=== PATIENT | female | born 1980 | race Caucasian/White ===

== ENCOUNTER 2019-11-19 19:44 | Emergency (ER) | payer SELFPAY ==
[2019-11-19] MEDS ORDERED: FENTANYL CITRATE INJ/PF 100 MCG/2 ML AMPUL IV ONE (20:25)
[2019-11-19] MEDS ORDERED: ONDANSETRON HCL INJ/PF 4 MG/2 ML SDV IV ONE (20:25)
[2019-11-19] MEDS ORDERED: HYDROMORPHONE HCL INJ/PF 2 MG/ML AMPULE IM ONE (20:27)
[2019-11-19] MEDS ORDERED: ONDANSETRON 4 MG TAB.RAPDIS PO ONE (20:29)
--- NOTE | 2019-11-19 20:29 | ER Document Report ---
ED Medical Screen (RME) - General Chief Complaint: Abdominal Pain Stated Complaint: POSSIBLE KIDNEY STONE, PELVIC PAIN, BACK PAIN Time Seen by Provider: 11/19/19 20:23 Notes: HPI: 39-year-old female with history of kidney stones and also history of ovarian torsion on the right presenting with right flank pain and pelvic pain today. Has had nausea vomiting with this. States it started early this morning around 830. Pain does not specifically change with position or movement. No fever PHYSICAL EXAMINATION: Moderately uncomfortable. No significant reproducible pain through the right flank or pelvis on palpation. I have greeted and performed a rapid initial assessment of this patient. A comprehensive ED assessment and evaluation of the patient, analysis of test results and completion of medical decision making process will be conducted by an additional ED providers. TRAVEL OUTSIDE OF THE [place] IN LAST 30 DAYS: No - Related Data Allergies/Adverse Reactions: metoclopramide HCl [From Reglan] Allergy (Verified 02/02/15 19:18) morphine [Morphine] Allergy (Verified 02/02/15 19:17) Past Medical History - Social History Frequency of alcohol use: None Drug Abuse: None Renal/ Medical History: Reports: Hx Kidney Stones, Hx Ovarian Cysts GI Medical History: Reports: Hx Gastroesophageal Reflux Disease, Hx Ulcer Past Surgical History: Reports: Hx Appendectomy, Hx Cholecystectomy, Hx Hyste rectomy - Partial - Immunizations Hx Diphtheria, Pertussis, Tetanus Vaccination: Yes Physical Exam - Vital signs Vitals: Temp Pulse Resp BP Pulse Ox 98.4 F 105 H 19 123/78 99 11/19/19 20:00 11/19/19 20:00 11/19/19 20:00 11/19/19 20:00 11/19/19 20:00 Course - Vital Signs Vital signs: Temp Pulse Resp BP Pulse Ox 98.4 F 105 H 19 123/78 99 11/19/19 20:19 11/19/19 20:00 11/19/19 20:00 11/19/19 20:00 11/19/19 20:00
[2019-11-19 20:53] LABS: ABSOLUTE BASOPHILS # (AUTO) 0.1 10^3/uL (0.0-0.2); ABSOLUTE EOSINOPHILS # (AUTO) 0.1 10^3/uL (0.0-0.6); ABSOLUTE LYMPHOCYTES (AUTO) 1.6 10^3/uL (0.5-4.7); ABSOLUTE MONOCYTES (AUTO) 0.6 10^3/uL (0.1-1.4); ABSOLUTE NEUT (AUTO) 3.1 10^3/uL (1.7-8.2); BASOPHILS % (AUTO) 1.3 % (0-2); HEMATOCRIT 38.7 % (36.0-47.0); HEMOGLOBIN 12.4 g/dL (12.0-15.5); LYMPHOCYTES % (AUTO) 29.3 % (13-45); MEAN CORPUSCULAR HEMOGLOBIN 28.4 pg (27.0-33.4); MEAN CORPUSCULAR VOLUME 89 fl (80-97); MONOCYTES % (AUTO) 10.9 % (3-13); PLATELET COUNT 360 10^3/uL (150-450); RED BLOOD COUNT 4.36 10^6/uL (3.72-5.28); RED CELL DISTRIBUTION WIDTH 16.6 % (11.5-14.0); SEGMENTED NEUTROPHILS % (AUTO) 57.5 % (42-78); TOTAL CELLS COUNTED % (AUTO) 100 %; WHITE BLOOD COUNT 5.3 10^3/uL (4.0-10.5)
[2019-11-19 21:20] LABS: ALBUMIN 4.2 g/dL (3.5-5.0); ALKALINE PHOSPHATASE 62 U/L (38-126); ANION GAP 6 (5-19); ASPARTATE AMINO TRANSFERASE 19 U/L (14-36); BILIRUBIN,TOTAL 0.3 mg/dL (0.2-1.3); BLOOD UREA NITROGEN 13 mg/dL (7-20); CARBON DIOXIDE 26 mmol/L (22-30); CHLORIDE 107 mmol/L (98-107); GLUCOSE 103 mg/dL (75-110); POTASSIUM 4.1 mmol/L (3.6-5.0); TOTAL PROTEIN 7.3 g/dL (6.3-8.2)
--- NOTE | 2019-11-19 21:43 | RADIOLOGY REPORT (SQ) ---
EXAM DESCRIPTION: US PELVIS TRANSVAGINAL COMPLETED DATE/TME: 11/19/2019 20:25 CLINICAL HISTORY: 39 years, Female, right pelvic pain torsion hx COMPARISON: None. EXAM DESCRIPTION: CLINICAL HISTORY:39 years Female, right pelvic pain torsion hx COMPARISON:None. TECHNIQUE: Grayscale and Doppler sonogram of the pelvis. Transabdominal technique was performed.Transvaginal technique was used for better evaluation of the pelvic viscera FINDINGS: The uterus is not visualized consistent with surgical history. No significant pelvic free fluid. The right ovary measures 2.5 x 1.6 x 1.8 cm and is normal in appearance including dominant follicle measuring 1 cm. Normal vascular flow by color and spectral Doppler imaging. The left ovary is not visualized on transabdominal or transvaginal views. IMPRESSION: Normal appearance of the right ovary. Nonvisualization of the left ovary. No acute sonographic abnormalities.
[2019-11-20] MEDS ORDERED: NORMAL SALINE 1000 ML 1,000 ML IV ONE (00:17)
[2019-11-20] MEDS ORDERED: KETOROLAC TROMETHAMINE INJ/PF 30 MG/1 ML SDV IV ONE (00:17)
--- NOTE | 2019-11-20 01:34 | RADIOLOGY REPORT (SQ) ---
CT abdomen and pelvis without contrast on 11/20/2019 at 12:11 AM CLINICAL INDICATION: Right-sided back pain, history of kidney stones TECHNIQUE: Multiple axial images are obtained throughout the abdomen and pelvis without the administration of contrast. This exam was performed according to our departmental dose-optimization program, which includes automated exposure control, adjustment of the mA and/or kV according to patient size and/or use of iterative reconstruction technique. Total DLP is 278.95 mGy*cm. COMPARISON: Prior report of a study from 06/07/2018 at [facility] but no images are available for comparison FINDINGS: Abdomen: The lung bases are clear. The patient is status post cholecystectomy. There is a very small hiatal hernia. There are no renal or ureteral stones and no hydronephrosis. The unenhanced solid abdominal organs are otherwise unremarkable. There is no abdominal adenopathy. There is no free fluid or free air within the abdomen. The abdominal portion of the GI tract is unremarkable. Pelvis: The patient is status post hysterectomy. There is no free fluid in the pelvis. There is no pelvic adenopathy. There is a rounded low-density structure in the right posterior pelvic inlet adjacent to surgical clips seen well on axial image 61 and coronal image 32. This is described on prior report as well. This measures approximately 2.7 x 2.3 x 3.1 cm. This may represent the right ovary versus a old postoperative seroma, lymphocele or hematoma but favor a benign etiology. If the prior images are made available for comparison an addendum to this report can be made. The patient is status post appendectomy. Pelvic portion of the GI tract is unremarkable. No acute bony abnormality is noted. IMPRESSION: 1. Cystic structure in the right pelvis likely benign etiology as above, if the prior images are made available for comparison an addendum to this report can be made. 2. Otherwise no acute abnormality.
[2019-11-20 01:51] LABS: APPEARANCE,URINE CLOUDY; BILIRUBIN,URINE NEGATIVE (NEGATIVE); GLUCOSE, URINE NEGATIVE (NEGATIVE); KETONES,URINE NEGATIVE (NEGATIVE); LEUKOCYTE ESTERASE,URINE SMALL (NEGATIVE); NITRITE,URINE NEGATIVE (NEGATIVE); PROTEIN,URINE 30 mg/dL (NEGATIVE); URINE SPECIFIC GRAVITY 1.024
[2019-11-20 01:52] LABS: COLOR,URINE YELLOW
[2019-11-20] MEDS ORDERED: METOCLOPRAMIDE HCL INJ/PF 10 MG/2 ML SDV IV ONE (02:05)
[2019-11-20] MEDS ORDERED: PROMETHAZINE HCL INJ 25 MG/1 ML VIAL IV ONE (02:05)
--- NOTE | 2019-11-20 02:15 | ER Document Report ---
ED GI/ - General Chief Complaint: Abdominal Pain Stated Complaint: POSSIBLE KIDNEY STONE, PELVIC PAIN, BACK PAIN Time Seen by Provider: 11/19/19 20:23 Primary Care Provider: MIRANDA CHEW NP-C [Primary Care Provider] - Follow up as needed Mode of Arrival: Ambulatory Information source: Patient Notes: 39-year-old female patient presenting to the emergency department with complaints of right flank pain and pelvic pain. She denies any abnormal discharge. She reports she has a history of kidney stones. She reports she has had nausea with vomiting but denies any fever, chills or diarrhea. She states that started early this morning around 830. She states there is no increase of her pain with movement. She thinks this is consistent with a kidney stone. TRAVEL OUTSIDE OF THE [place] IN LAST 30 DAYS: No - Related Data Allergies/Adverse Reactions: metoclopramide HCl [From Reglan] Allergy (Verified 02/02/15 19:18) morphine [Morphine] Allergy (Verified 02/02/15 19:17) Past Medical History - General Information source: Patient - Social History Smoking Status: Never Smoker Frequency of alcohol use: None Drug Abuse: None Family History: CAD, Reviewed & Not Pertinent Patient has homicidal ideation: No Renal/ Medical History: Reports: Hx Kidney Stones, Hx Ovarian Cysts GI Medical History: Reports: Hx Gastroesophageal Reflux Disease, Hx Ulcer Past Surgical History: Reports: Hx Appendectomy, Hx Cholecystectomy, Hx Hysterectomy - Partial - Immunizations Hx Diphtheria, Pertussis, Tetanus Vaccination: Yes Review of Systems - Review of Systems Constitutional: No symptoms reported EENT: No symptoms reported Cardiovascular: No symptoms reported Respiratory: No symptoms reported Gastrointestinal: Nausea, Vomiting Genitourinary: Flank pain Female Genitourinary: No symptoms reported Musculoskeletal: No symptoms reported Skin: No symptoms reported Hematologic/Lymphatic: No symptoms reported Neurological/Psychological: No symptoms reported Physical Exam - Vital signs Vitals: Temp Pulse Resp BP Pulse Ox 98.4 F 105 H 19 123/78 99 11/19/19 20:00 11/19/19 20:00 11/19/19 20:00 11/19/19 20:00 11/19/19 20:00 - Notes Notes: PHYSICAL EXAMINATION: GENERAL: Well-appearing, well-nourished and in no acute distress. HEAD: Atraumatic, normocephalic. EYES: Pupils equal round and reactive to light, extraocular movements intact, conjunctiva are normal. ENT: Nares patent, oropharynx clear without exudates. Moist mucous membranes. NECK: Normal range of motion, supple without lymphadenopathy LUNGS: Breath sounds clear to auscultation bilaterally and equal. No wheezes rales or rhonchi. HEART: Regular rate and rhythm without murmurs ABDOMEN: Soft, nontender, nondistended abdomen. No guarding, no rebound. No masses appreciated. Female : deferred Musculoskeletal: Normal range of motion, no pitting or edema. No cyanosis. NEUROLOGICAL: Cranial nerves grossly intact. Normal speech, normal gait. Normal sensory, motor exams PSYCH: Normal mood, normal affect. SKIN: Warm, Dry, normal turgor, no rashes or lesions noted. Course - Re-evaluation Re-evalutation: Laboratory 11/19/19 11/19/19 11/19/19 20:40 20:40 20:40 WBC 5.3 RBC 4.36 Hgb 12.4 Hct 38.7 MCV 89 MCH 28.4 MCHC 32.0 RDW 16.6 H Plt Count 360 Lymph % (Auto) 29.3 Mclean % (Auto) 10.9 Eos % (Auto) 1.0 Baso % (Auto) 1.3 Absolute Neuts (auto) 3.1 Absolute Lymphs (auto) 1.6 Absolute Monos (auto) 0.6 Absolute Eos (auto) 0.1 Absolute Basos (auto) 0.1 Seg Neutrophils % 57.5 Sodium 139.0 Potassium 4.1 Chloride 107 Carbon Dioxide 26 Anion Gap 6 BUN 13 Creatinine 0.60 Est GFR ( Amer) > 60 Est GFR (MDRD) Non-Af > 60 Glucose 103 Calcium 10.0 Total Bilirubin 0.3 Direct Bilirubin 0.0 Neonat Total Bilirubin Not Reportable Neonat Direct Bilirubin Not Reportable Neonat Indirect Bili Not Reportable AST 19 ALT 13 Alkaline Phosphatase 62 Total Protein 7.3 Albumin 4.2 Serum HCG, Qual NEGATIVE Urine Color Urine Appearance Urine pH Ur Specific [place] Urine Protein Urine Glucose (UA) Urine Ketones Urine Blood Urine Nitrite Urine Bilirubin Urine Urobilinogen Ur Leukocyte Esterase Urine WBC (Auto) Urine RBC (Auto) Urine Bacteria (Auto) Squamous Epi Cells Auto Urine Mucus (Auto) Urine Ascorbic Acid 11/19/19 20:40 WBC RBC Hgb Hct MCV MCH MCHC RDW Plt Count Lymph % (Auto) Mclean % (Auto) Eos % (Auto) Baso % (Auto) Absolute Neuts (auto) Absolute Lymphs (auto) Absolute Monos (auto) Absolute Eos (auto) Absolute Basos (auto) Seg Neutrophils % Sodium Potassium Chloride Carbon Dioxide Anion Gap BUN Creatinine Est GFR ( Amer) Est GFR (MDRD) Non-Af Glucose Calcium Total Bilirubin Direct Bilirubin Neonat Total Bilirubin Neonat Direct Bilirubin Neonat Indirect Bili AST ALT Alkaline Phosphatase Total Protein Albumin Serum HCG, Qual Urine Color YELLOW Urine Appearance CLOUDY Urine pH 6.0 Ur Specific [place] 1.024 Urine Protein 30 H Urine Glucose (UA) NEGATIVE Urine Ketones NEGATIVE Urine Blood LARGE H Urine Nitrite NEGATIVE Urine Bilirubin NEGATIVE Urine Urobilinogen 4.0 H Ur Leukocyte Esterase SMALL H Urine WBC (Auto) 4 Urine RBC (Auto) >182 Urine Bacteria (Auto) TRACE Squamous Epi Cells Auto 9 Urine Mucus (Auto) MANY Urine Ascorbic Acid NEGATIVE Abdomen/Pelvis CT 11/19/19 20:24 IMPRESSION: 1. Cystic structure in the right pelvis likely benign etiology as above, if the prior images are made available for comparison an addendum to this report can be made. 2. Otherwise no acute abnormality. Transvaginal US 11/19/19 20:25 IMPRESSION: Normal appearance of the right ovary. Nonvisualization of the left ovary. No acute sonographic abnormalities. Patient's work-up today has been reassuring other than hematuria. Patient denies any urinary frequency or dysuria so a urine culture will be done. Patient CT of the abdomen pelvis as well as transvaginal ultrasound were both unremarkable. Patient reports to the nurse she is allergic to Toradol, this was not previously reported. Upon review of the [place] [employer] database, patient has had multiple narcotic prescriptions, there is been 28 providers and she has had medications filled 18 different pharmacies in the last 24 months. For this reason I will not give any additional narcotic pain medications in the emergency department and I will not re-prescribe any. She recently had [place] prescribed to her last week. All test results were discussed with patient, encouraged her to take ibuprofen at home. ED return precautions discussed, patient verbalized understanding and agreement with plan. - Vital Signs Vital signs: Temp Pulse Resp BP Pulse Ox 98.3 F 53 L 18 109/73 98 11/20/19 02:45 11/20/19 02:45 11/20/19 02:45 11/20/19 02:45 11/20/19 02:45 - Laboratory Result Diagrams: 11/19/19 20:40 11/19/19 20:40 Laboratory results interpreted by me: 11/19/19 11/19/19 20:40 20:40 RDW 16.6 H Urine Protein 30 H Urine Blood LARGE H Urine Urobilinogen 4.0 H Ur Leukocyte Esterase SMALL H Discharge - Discharge Clinical Impression: Flank pain Condition: Stable Disposition: HOME, SELF-CARE Additional Instructions: Your work-up today was reassuring. There is no evidence of kidney stones at this time. You did have blood in your urine so it is possible that you passed a stone. As a precaution, I will provide you with a prescription for Flomax and zofran. For pain I would recommend taking ibuprofen 600 mg every 6 hours if you are able to. Please continue taking your hydrocodone as prescribed by your ou tside provider. Please follow-up with them and/or urology for any persistent symptoms. Return to the emergency department with any new or worsening symptoms. Prescriptions: Tamsulosin HCl [Flomax] 0.4 mg PO DAILY #7 cap.er.24h Ondansetron [Zofran Odt 4 mg Tablet] 1 - 2 tab PO Q4H PRN #15 tab.rapdis PRN Reason: For Nausea/Vomiting Referrals: MIRANDA CHEW, [employer] ATTENDANT-C [Primary Care Provider] - Follow up as needed
[2019-11-20] MEDS ORDERED: ONDANSETRON ODT 4 MG TAB (6 TAB/ER DISP) PO PRN (02:21)
[2019-11-20] MEDS ORDERED: PROMETHAZINE HCL INJ 25 MG/1 ML VIAL IM ONE (02:27)
[2019-11-20 02:50] VITALS: BP 109/73
== END 2019-11-20 02:50 | disposition home or self-care (01) ==
LOC: ER 19:44
DX: R10.9 Unspecified abdominal pain (principal); R10.2 Pelvic and perineal pain; R11.2 Nausea with vomiting, unspecified; Z87.442 Personal history of urinary calculi; Z90.710 Acquired absence of both cervix and uterus
CPT/HCPCS: 99284; 96372; 96360; 36415; 87086; 84703; 85025; 80053; 81001; 76830; 93976; 74176; S0119; J1170; J2550; J7030

== ENCOUNTER 2019-12-08 22:55 | Emergency (ER) | payer SELFPAY ==
[2019-12-08] MEDS ORDERED: MORPHINE SULFATE 10 MG/ML INJ IV ONE (23:33)
--- NOTE | 2019-12-08 23:46 | ER Document Report ---
ED Medical Screen (RME) - General Chief Complaint: Post Surgical Pain Stated Complaint: CHEST PAIN Time Seen by Provider: 12/08/19 23:27 Primary Care Provider: MIRANDA CHEW NP-C [Primary Care Provider] - Follow up as needed Mode of Arrival: Wheelchair Information source: Patient Notes: HPI; 39-year-old female 6 days postop right hip surgery presents to the e mergency room complaining of worsening hip pain, fever, right calf pain, chest pain that started today. States her temp at home was 100. Has been taking Tylenol and her oxycodone without relief. PE: Alert and oriented x3. Mild distress noted. Lungs are clear to auscultation without rales, rhonchi, wheezes. Heart: Regular rate rhythm without murmurs rubs or gallops. Unable to do full assessment in triage. I have greeted and performed a rapid initial assessment of this patient. A comprehensive ED assessment and evaluation of the patient, analysis of test results and completion of the medical decision making process will be conducted by additional ED providers. I have specifically instructed the patient or family members with the patient to immediately return to any nursing staff madhavi uld anything change in the patient's condition or with their chief complaint. TRAVEL OUTSIDE OF THE [place] IN LAST 30 DAYS: No - Related Data Allergies/Adverse Reactions: gabapentin Allergy (Verified 12/08/19 23:37) metoclopramide HCl [From Reglan] Allergy (Verified 02/02/15 19:18) NSAIDS (Non-Steroidal Anti-Inflamma Allergy (Verified 12/08/19 23:37) pregabalin [From Lyrica] Allergy (Verified 12/08/19 23:37) prochlorperazine [From Compazine] Allergy (Verified 12/08/19 23:37) Home Medications: hydrocodone, omeprazole, cymbalta Past Medical History Renal/ Medical History: Reports: Hx Kidney Stones, Hx Ovarian Cysts GI Medical History: Reports: Hx Gastroesophageal Reflux Disease, Hx Ulcer Past Surgical History: Reports: Hx Appendectomy, Hx Cholecystectomy, Hx Hysterectomy - Partial - Immunizations Hx Diphtheria, Pertussis, Tetanus Vaccination: Yes Physical Exam - Vital signs Vitals: Temp Pulse Resp BP Pulse Ox 97.9 F 89 16 93/56 L 100 12/08/19 23:07 12/08/19 23:07 12/08/19 23:07 12/08/19 23:07 12/08/19 23:07 Course - Vital Signs Vital signs: Temp Pulse Resp BP Pulse Ox 97.9 F 89 16 93/56 L 100 12/08/19 23:07 12/08/19 23:07 12/08/19 23:07 12/08/19 23:07 12/08/19 23:07 Doctor's Discharge - Discharge Referrals: MIRANDA CHEW NP-C [Primary Care Provider] - Follow up as needed
[2019-12-09 03:36] LABS: APPEARANCE,URINE CLOUDY; BILIRUBIN,URINE NEGATIVE (NEGATIVE); COLOR,URINE YELLOW; GLUCOSE, URINE NEGATIVE (NEGATIVE); KETONES,URINE NEGATIVE (NEGATIVE); LEUKOCYTE ESTERASE,URINE NEGATIVE (NEGATIVE); NITRITE,URINE NEGATIVE (NEGATIVE); PROTEIN,URINE NEGATIVE (NEGATIVE); URINE SPECIFIC GRAVITY 1.017; UROBILINOGEN,URINE NEGATIVE mg/dL (<2.0)
[2019-12-09] MEDS ORDERED: HYDROMORPHONE HCL INJ/PF 2 MG/ML AMPULE IV ONE ×4 (06:34→19:05)
[2019-12-09] MEDS ORDERED: ONDANSETRON HCL INJ/PF 4 MG/2 ML SDV IV ONE ×4 (06:35→19:05)
[2019-12-09] MEDS ORDERED: NORMAL SALINE 1000 ML 1,000 ML IV ONE (06:36)
[2019-12-09 07:31] LABS: ABSOLUTE EOSINOPHILS # (AUTO) 0.3 10^3/uL (0.0-0.6); ABSOLUTE LYMPHOCYTES (AUTO) 1.4 10^3/uL (0.5-4.7); ABSOLUTE MONOCYTES (AUTO) 0.6 10^3/uL (0.1-1.4); ABSOLUTE NEUT (AUTO) 4.1 10^3/uL (1.7-8.2); BASOPHILS % (AUTO) 0.6 % (0-2); EOSINOPHILS % (AUTO) 5.1 % (0-6); HEMATOCRIT 32.1 % (36.0-47.0); HEMOGLOBIN 10.7 g/dL (12.0-15.5); LYMPHOCYTES % (AUTO) 21.8 % (13-45); MEAN CORPUSCULAR HEMOGLOBIN 28.8 pg (27.0-33.4); MEAN CORPUSCULAR HGB CONC 33.3 g/dL (32.0-36.0); MEAN CORPUSCULAR VOLUME 87 fl (80-97); MONOCYTES % (AUTO) 9.4 % (3-13); PLATELET COUNT 398 10^3/uL (150-450); RED CELL DISTRIBUTION WIDTH 16.4 % (11.5-14.0); SEGMENTED NEUTROPHILS % (AUTO) 63.1 % (42-78); TOTAL CELLS COUNTED % (AUTO) 100 %; WHITE BLOOD COUNT 6.5 10^3/uL (4.0-10.5)
[2019-12-09 07:49] LABS: ALBUMIN 3.6 g/dL (3.5-5.0); ALKALINE PHOSPHATASE 57 U/L (38-126); ANION GAP 6 (5-19); ASPARTATE AMINO TRANSFERASE 18 U/L (14-36); BILIRUBIN,TOTAL 0.5 mg/dL (0.2-1.3); BLOOD UREA NITROGEN 13 mg/dL (7-20); CALCIUM 9.4 mg/dL (8.4-10.2); CARBON DIOXIDE 26 mmol/L (22-30); CHLORIDE 105 mmol/L (98-107); GLUCOSE 93 mg/dL (75-110); POTASSIUM 4.3 mmol/L (3.6-5.0); TOTAL PROTEIN 6.7 g/dL (6.3-8.2)
--- NOTE | 2019-12-09 08:04 | RADIOLOGY REPORT (SQ) ---
CT ANGIOGRAM CHEST WITH IV CONTRAST: 12/09/2019 7:00 AM CDT HISTORY: 39-year old patient with chest pain. TECHNIQUE: Postcontrast CT through the chest was performed per protocol for CT angiography. 3D Multiplanar reformations were performed at the workstation. Reconstructed sagittal and coronal images were also obtained through the chest. This exam was performed according to our departmental dose-optimization program, which includes automated exposure control, adjustment of the mA and/or KV according to the patient's size and/or use of iterative reconstruction technique. COMPARISON: None available FINDINGS: The heart size is within normal limits of size. No large pericardial effusion is seen. No significant mediastinal, supraclavicular, or axillary lymphadenopathy is seen. The thoracic aorta is within normal limits of size. No filling defects are seen within the pulmonary arteries to suggest a pulmonary artery embolism. The main pulmonary artery is within normal limits in size. There is nodularity of the thyroid gland. There is a possible nodule at the isthmus measuring up to 3.9 x 1.9 cm. The central tracheobronchial tree is patent. No focal consolidative airspace opacity is seen. No discrete pleural effusion is seen. There is no evidence of a pneumothorax. The bones demonstrate no suspicious lytic or blastic lesion. The gallbladder is surgically absent. IMPRESSION: No acute airspace opacities are seen. No filling defect is seen to suggest a pulmonary artery embolism. There is a possible thyroid nodule. Further evaluation with thyroid ultrasound would be of benefit.
--- NOTE | 2019-12-09 08:17 | RADIOLOGY REPORT (SQ) ---
EXAM DESCRIPTION: CT PELVIS WITH IV CONTRAST, CT LOWER EXTREMITY WITH IV CONTRAST COMPLETED DATE/TME: 12/09/2019 06:38 CLINICAL HISTORY: 39 years, Female, post op right hip surgery/pain/fever COMPARISON: November 20, [address] TECHNIQUE: Postcontrast axial, coronal, and sagittal images of the pelvis and right lower extremity from the hip to the distal tibia and fibula were obtained utilizing 88 mL Omnipaque 350 intravenously. Images stored on PACS. All CT scanners at this facility use dose modulation, iterative reconstruction, and/or weight based dosing when appropriate to reduce radiation dose to as low as reasonably achievable (ALARA). [facility]: Dose Right [facility]: CareDose [facility]: Dose Right [facility]: Teradose 4D [facility]: [employer] LIMITATIONS: None. FINDINGS: CT pelvis: Low-density mass or collection measuring up to 3 cm is again identified within the right pelvis for instance on axial image 32. There are several adjacent surgical clips. This has an average internal Hounsfield density of 3, which is within the range of fluid. This is stable from the prior CT. This appears to be separate from the right ovary which I suspect is on axial image 55. Patient is again noted to be status post hysterectomy. There is no free fluid. There is no intrapelvic inflammatory fat stranding. There is no fracture or significant joint space narrowing. There is evidence of a right hip joint effusion, new from the prior CT. There is mild subcutaneous fat stranding about the anterior lateral right hip/upper thigh, new from the prior CT, nonspecific. CT right lower extremity: Examination reveals evidence of a right hip joint effusion. Fat stranding and soft tissue thickening are identified within the subcutaneous tissues of the anterior lateral right thigh with deeper extension to the right hip with some associated muscular thickening as well. Has there been interval arthrocentesis or other intervention? There is no evidence of significant joint effusion about the knee. No significant degenerative changes are identified about the knee. There is no discrete bone lesion or periosteal reaction about the right femur or visualized portions of the right tibia and fibula or patella. There is no soft tissue gas identified. IMPRESSION: 1. Evidence of right hip joint effusion. Fat stranding and soft tissue thickening are identified within the soft tissues of the anterior right hip/upper thigh, extending from the subcutaneous fat to the level of the hip joint. Has there been recent arthrocentesis or other procedure/penetrating trauma? Infection is not excluded. I see no evidence of osteomyelitis or destructive changes about the joint space at this time. Correlation with the patient's history and clinical presentation is recommended. If additional imaging is desired, MRI might be considered. Arthrocentesis might be considered if moderate performed as well. 2. Stable masslike area/collection right pelvis, most likely postoperative collection. TECHNICAL DOCUMENTATION: Quality ID # 436: Final reports with documentation of one or more dose reduction techniques (e.g., Automated exposure control, adjustment of the mA and/or kV according to patient size, use of iterative reconstruction technique) copyright 2011 [employer]- All Rights Reserved
[2019-12-09 08:36] VITALS: BP 104/71
[2019-12-09] MEDS ORDERED: PANTOPRAZOLE SODIUM 40 MG VIAL IV ONE (08:46)
[2019-12-09 09:23] LABS: URINE AMPHETAMINES SCREEN NEGATIVE; URINE BARBITURATES SCREEN NEGATIVE; URINE BENZODIAZEPINES SCREEN NEGATIVE; URINE COCAINE SCREEN NEGATIVE; URINE MARIJUANA (THC) SCREEN NEGATIVE; URINE METHADONE SCREEN NEGATIVE; URINE PHENCYCLIDINE SCREEN NEGATIVE
--- NOTE | 2019-12-09 09:40 | RADIOLOGY REPORT (SQ) ---
EXAM DESCRIPTION: VENOUS UNILATERAL LOWER IMAGES COMPLETED DATE/TIME: 12/09/2019 9:32 am REASON FOR STUDY: right leg sangita/calf/post op COMPARISON: None. TECHNIQUE: Dynamic and static flor scale and color images acquired of the right leg venous system. S elected spectral images acquired with additional compression and augmentation maneuvers. The contrala teral common femoral vein and saphenofemoral junction were also imaged. Images stored on PACS. LIMITATIONS: None. FINDINGS: COMMON FEMORAL: Normal phasicity, compression and augmentation. No visualized echogenic ma terial on flor scale. No defects on color images. FEMORAL: Normal compression and augmentation. No visualized echogenic material on flor scale. No defe cts on color images. POPLITEAL: Normal compression, augmentation. No visualized echogenic material on lfor scale. No defec ts on color images. CALF VESSELS: Normal compression, augmentation. No visualized echogenic material on flor scale. No de fects on color images. GSV and SSV: Normal compression, augmentation. No visualized echogenic material on flor scale. No def ects on color images. ANY DEEP VENOUS INSUFFICIENCY: Not evaluated. ANY EVIDENCE OF POPLITEAL CYST: No. OTHER: No other significant finding. CONTRALATERAL COMMON FEMORAL VEIN AND SAPHENOFEMORAL JUNCTION: Normal phasicity, compression and augmentation. No visualized echogenic material on flor scale. No de fects on color images. IMPRESSION: NO EVIDENCE OF DVT OR SVT IN THE RIGHT LEG. TECHNICAL DOCUMENTATION: JOB ID: [id number] 2010 [employer]- All Rights Reserved Reading location - IP/workstation name: [email or web address]
--- NOTE | 2019-12-09 10:11 | EKG REPORT ---
SEVERITY:- NORMAL ECG - SINUS RHYTHM : Confirmed by: Sierra Paz 09-Dec-2019 10:10:18
[2019-12-09] MEDS ORDERED: SUCRALFATE 1 GM TABLET PO ONE (11:10)
[2019-12-09] MEDS ORDERED: DEXTROSE 5%-1/2 NORMAL SALINE 500 ML IV ONE (11:21)
--- NOTE | 2019-12-09 13:41 | RADIOLOGY REPORT (SQ) ---
EXAM DESCRIPTION: MRI PELVIS WITHOUT IMAGES COMPLETED DATE/TIME: 12/09/2019 1:15 pm REASON FOR STUDY: post op right hip pain/fluid collection COMPARISON: CT studies from earlier. TECHNIQUE: Multiplanar imaging of the pelvis and right hip to include fat and fluid sensitive sequen sagar. LIMITATIONS: None. FINDINGS: BONE MARROW: No marrow signal alteration. Specifically no marrow replacement or marrow ed hi. No evidence for osteomyelitis. No cortical break through. SOFT TISSUES: No significant joint effusion. Regional superficial and deep soft tissue edema in the subcutaneous tissues and muscles. No focal drainable fluid collections to suggest extrapelvic abces s. Right lower quadrant retroperitoneal circumscribed cystic lesion measures less than 3cm. Possibl e seroma or duplication cyst. OTHER: No other significant finding. IMPRESSION: No evidence of osteomyelitis or abcess or joint effusion. Cellulitis and other findings as above. TECHNICAL DOCUMENTATION: JOB ID: [id number] 2010 [employer]- All Rights Reserved Reading location - IP/workstation name: [email or web address]
--- NOTE | 2019-12-09 16:11 | RADIOLOGY REPORT (SQ) ---
EXAM DESCRIPTION: CT ABD/PELVIS NO ORAL OR IV IMAGES COMPLETED DATE/TIME: 12/09/2019 3:21 pm REASON FOR STUDY: GI BLEED COMPARISON: 11/20/2019 TECHNIQUE: CT scan of the abdomen and pelvis performed without intravenous or oral contrast. Images reviewed with lung, soft tissue, and bone windows. Reconstructed coronal and sagittal MPR images revi ewed. All images stored on PACS. All CT scanners at this facility use dose modulation, iterative reconstruction, and/or weight based d osing when appropriate to reduce radiation dose to as low as reasonably achievable (ALARA). [facility]: Dose Right [facility]: CareDose [facility]: Dose Right [facility]: Teradose 4D [facility]: Smart Un[employer] RADIATION DOSE: mGy. LIMITATIONS: None. FINDINGS: LOWER CHEST: Tiny hiatal hernia. NON-CONTRASTED LIVER, SPLEEN, ADRENALS: Evaluation limited by lack of IV contrast. No identified sign ificant masses. PANCREAS: No masses. No peripancreatic inflammatory changes. GALLBLADDER: Surgically absent. RIGHT KIDNEY AND URETER: No suspicious masses. Assessment limited by lack of IV contrast. High atte nuation material within the collecting system, likely contrast from same day MRI. No discrete stones . No hydronephrosis or hydroureter. LEFT KIDNEY AND URETER: No suspicious masses. Assessment limited by lack of IV contrast. High atten uation material within the collecting system loss likely contrast from same day MRI. No discrete sto estuardo. No hydronephrosis or hydroureter. AORTA AND RETROPERITONEUM: No aneurysm. No retroperitoneal masses or adenopathy. BOWEL AND PERITONEAL CAVITY: No obvious masses or inflammatory changes. No free fluid. APPENDIX: Not visualized. PELVIS, BLADDER, AND ABDOMINAL WALL: Mild subcutaneous stranding along the right proximal thigh ante riorly. Unchanged low-density lesion within the right adnexum, possibly seroma or duplication cyst. Decompressed urinary bladder. Prior hysterectomy. No lymphadenopathy. BONES: No acute bony abnormality. No suspicious lytic or blastic osseous lesions. OTHER: No other significant finding. IMPRESSION: 1. Mild subcutaneous stranding along the anterior right thigh, possibly cellulitis. No other evidence of acute intra-abdominal/pelvic process. 2. Stable cystic lesion within the right pelvis, better evaluated on same day MRI. 3. Additional incidental findings as above. COMMENT: Quality ID # [id number]: Final reports with documentation of one or more dose reduction techniques (e.g., Automated exposure control, adjustment of the mA and/or kV according to patient size, use of iterative reconstruction technique) TECHNICAL DOCUMENTATION: JOB ID: [id number] 2010 [employer]- All Rights Reserved Reading location - IP/workstation name: [email or web address]
--- NOTE | 2019-12-09 17:21 | ER Document Report ---
Entered by DU COURTNEY SCRIBE 12/09/19 0633 Acting as scribe for:LIZBETH BARROS MD ED General - General Chief Complaint: Post Surgical Pain Stated Complaint: CHEST PAIN Time Seen by Provider: 12/08/19 23:27 Primary Care Provider: MIRANDA CHEW NP-C [Primary Care Provider] - Follow up as needed Mode of Arrival: Wheelchair Information source: Patient Notes: This 39 year old female patient s/p right hip laparoscopic hip surgery last Thursday presents today with complaints of right hip pain, fevers, unable to put weight on her right leg, and right calf pain. She indicates that all of these symptoms seem to start abruptly yesterday. Patient also mentions chest panic exacerbated with deep breathing. She denies a cough, urinary symptoms, or constipation. She denies a personal or family history of DVT/PE. She is not anticoagulated. TRAVEL OUTSIDE OF THE [place] IN LAST 30 DAYS: No - Related Data Allergies/Adverse Reactions: gabapentin Allergy (Verified 12/08/19 23:37) metoclopramide HCl [From Reglan] Allergy (Verified 02/02/15 19:18) NSAIDS (Non-Steroidal Anti-Inflamma Allergy (Verified 12/08/19 23:37) pregabalin [From Lyrica] Allergy (Verified 12/08/19 23:37) prochlorperazine [From Compazine] Allergy (Verified 12/08/19 23:37) Home Medications: hydrocodone, omeprazole, cymbalta Past Medical History - General Information source: Patient - Social History Smoking Status: Current Every Day Smoker Cigarette use (# per day): Yes Frequency of alcohol use: None Drug Abuse: None Lives with: Family Family History: CAD, Reviewed & Not Pertinent Patient has homicidal ideation: No Renal/ Medical History: Reports: Hx Kidney Stones, Hx Ovarian Cysts GI Medical History: Reports: Hx Gastroesophageal Reflux Disease, Hx Ulcer Past Surgical History: Reports: Hx Appendectomy, Hx Cholecystectomy, Hx Hysterectomy - Partial, Hx Orthopedic Surgery - Right hip surgery for calcified labrum - Immunizations Hx Diphtheria, Pertussis, Tetanus Vaccination: Yes Review of Systems - Review of Systems Constitutional: No symptoms reported EENT: No symptoms reported Cardiovascular: See HPI, Chest pain Respiratory: No symptoms reported Gastrointestinal: No symptoms reported Genitourinary: No symptoms reported Female Genitourinary: No symptoms reported Musculoskeletal: See HPI, Joint pain - Right hip, Right calf Skin: No symptoms reported Hematologic/Lymphatic: No symptoms reported Neurological/Psychological: No symptoms reported -: Yes All other systems reviewed and negative Physical Exam - Vital signs Vitals: Temp Pulse Resp BP Pulse Ox 97.9 F 89 16 93/56 L 100 12/08/19 23:07 12/08/19 23:07 12/08/19 23:07 12/08/19 23:07 12/08/19 23:07 - Notes Notes: Physical Exam: General: Alert, appears well. HEENT: Normocephalic. Atraumatic. PERRL. Extraocular movements intact. Orophar ynx clear. Neck: Supple. Non-tender. Respiratory: No respiratory distress. Clear and equal breath sounds bilaterally. Cardiovascular: Regular rate and rhythm. Abdominal: Normal Inspection. Non-tender. No distension. Normal Bowel Sounds. Back: No gross abnormalities. Extremities: Moves all four extremities. Upper extremities: Normal inspection. Normal ROM. Lower extremities: Right hip is somewhat warm to the touch. Painful to touch. Neurological: Normal cognition. AAOx4. Normal speech. Psychological: Normal affect. Normal Mood. Skin: There are 3 1/2 inch port holes to right anterior lateral right hip with mild swelling. There are two sutures in each incision and they are clean, dry, and intact. Course - Re-evaluation Re-evalutation: 12/09/19 17:10 Patient waiting for test results and decision making regarding transfer note. Patient will be transferred to [facility] from our ED to the [facility] ED. Patient was accepted by Dr. Melton 12/09/19 17:17 During the course of the work-up in the emergency department today patient developed an upper GI bleed of bright red blood. Patient was given medications Carafate and Protonix and Zofran as needed for nausea. Patient is receiving IV fluids to maintain her hemodynamic status there is been no compromise in her blood pressure pulse. - Vital Signs Vital signs: Temp Pulse Resp BP Pulse Ox 98.4 F 62 16 104/71 100 12/09/19 08:22 12/09/19 08:22 12/09/19 08:22 12/09/19 08:22 12/09/19 08:12/09/19 17:11 Vital signs stable - Laboratory Result Diagrams: 12/09/19 07:09 12/09/19 07:09 Laboratory results interpreted by me: 12/09/19 12/09/19 07:09 07:09 RBC 3.70 L Hgb 10.7 L Hct 32.1 L RDW 16.4 H D-Dimer 0.77 H Laboratories show a hemoglobin of 10.7 hematocrit 32 d-dimer 0.77. Patient has repeat laboratories to determine if her hematocrit hemoglobin has changed i nasmuch as she has had an upper GI bleed while in the department. Her GI bleed has been treated with Carafate Protonix and and Zofran for nausea and vomiting. - Diagnostic Test Radiology reviewed: Image reviewed, Reports reviewed Radiology results interpreted by me: 12/09/19 17:13 CT scan of pelvis shows areas of inflammation fat stranding and prior surgery noted. Amount of fluid present appears to be present as expected postop. No collection of abscess. MRI scan of pelvis right hip shows postop evidence and soft tissue stranding consistent with cellulitis of the deep soft tissues. No collection of abscess or any collection of fluid to drain within the right hip joint. 12/09/19 17:15 CT of right lower extremity did not show any new findings other than what was seen on CT pelvis region of concern were surgery had occurred. See note above CTA of chest did not show any acute pulmonary emboli. Venous Doppler study of the right lower extremity did not show any DVT. - EKG Interpretation by Me Additional EKG results interpreted by me: 12/09/19 17:16 Twelve-lead EKG shows normal sinus rhythm rate of 78 no acute process. Discharge - Discharge Clinical Impression: Cellulitis, Post-op pain, Upper GI bleed Condition: Fair Disposition: [facility] Referrals: MIRANDA CHEW, SOCIAL ECONOMIST-C [Primary Care Provider] - Follow up as needed I personally performed the services described in the documentation, reviewed and edited the documentation which was dictated to the scribe in my presence, and it accurately records my words and actions.
[2019-12-09 17:32] LABS: ABSOLUTE BASOPHILS # (AUTO) 0.1 10^3/uL (0.0-0.2); ABSOLUTE EOSINOPHILS # (AUTO) 0.4 10^3/uL (0.0-0.6); ABSOLUTE MONOCYTES (AUTO) 0.9 10^3/uL (0.1-1.4); ABSOLUTE NEUT (AUTO) 4.5 10^3/uL (1.7-8.2); BASOPHILS % (AUTO) 1.2 % (0-2); EOSINOPHILS % (AUTO) 5.3 % (0-6); HEMATOCRIT 30.1 % (36.0-47.0); LYMPHOCYTES % (AUTO) 24.8 % (13-45); MEAN CORPUSCULAR HEMOGLOBIN 28.8 pg (27.0-33.4); MEAN CORPUSCULAR HGB CONC 33.4 g/dL (32.0-36.0); MEAN CORPUSCULAR VOLUME 86 fl (80-97); MONOCYTES % (AUTO) 11.5 % (3-13); RED BLOOD COUNT 3.49 10^6/uL (3.72-5.28); RED CELL DISTRIBUTION WIDTH 16.3 % (11.5-14.0); SEGMENTED NEUTROPHILS % (AUTO) 57.2 % (42-78); TOTAL CELLS COUNTED % (AUTO) 100 %; WHITE BLOOD COUNT 7.9 10^3/uL (4.0-10.5)
[2019-12-09 17:57] LABS: PLATELET COUNT 346 10^3/uL (150-450)
--- NOTE | 2019-12-09 17:58 | RADIOLOGY REPORT (SQ) ---
EXAM DESCRIPTION: CHEST SINGLE VIEW IMAGES COMPLETED DATE/TIME: 12/09/2019 4:44 pm REASON FOR STUDY: Upper GI bleed COMPARISON: CT angiography chest, same date at 0729 hours. EXAM PARAMETERS: NUMBER OF VIEWS: One view. TECHNIQUE: Single frontal radiographic view of the chest acquired. RADIATION DOSE: NA LIMITATIONS: None. FINDINGS: LUNGS AND PLEURA: No opacities, masses or pneumothorax. No pleural effusion. MEDIASTINUM AND HILAR STRUCTURES: No masses. Contour normal. HEART AND VASCULAR STRUCTURES: Heart normal in size. Normal vasculature. BONES: No acute findings. HARDWARE: None in the chest. OTHER: No other significant finding. IMPRESSION: NO ACUTE RADIOGRAPHIC FINDING IN THE CHEST. TECHNICAL DOCUMENTATION: JOB ID: [id number] 2010 [employer]- All Rights Reserved Reading location - IP/workstation name: [email or web address]
== END 2019-12-09 20:01 | disposition short-term general hospital (02) ==
LOC: ER 22:55
DX: L03.90 Cellulitis, unspecified (principal); K92.2 Gastrointestinal hemorrhage, unspecified; R11.2 Nausea with vomiting, unspecified; M25.551 Pain in right hip; M79.661 Pain in right lower leg; G89.18 Other acute postprocedural pain; R07.9 Chest pain, unspecified; F17.210 Nicotine dependence, cigarettes, uncomplicated; K21.9 Gastro-esophageal reflux disease without esophagitis; Z79.899 Other long term (current) drug therapy; Z79.891 Long term (current) use of opiate analgesic; Z90.49 Acquired absence of other specified parts of digestive tract; Z90.711 Acquired absence of uterus with remaining cervical stump; Z88.6 Allergy status to analgesic agent; Z88.8 Allergy status to other drugs, medicaments and biological substances; Z82.49 Family history of ischemic heart disease and other diseases of the circulatory system
CPT/HCPCS: 93005; 96376; 99285; 96361; 96374; 96375; 36415; 87040; 83605; 85025; 82271; 82270; 80053; 81001; 84484; 80307; 85379; 93971; 72195; 71045; 71275; 72193; 74176; 73701; 93010; J1170; C9113; J2405; J7070; J7030

== ENCOUNTER 2020-01-06 11:53 | Inpatient (IN) | payer SELFPAY ==
[2020-01-06] MEDS ORDERED: ONDANSETRON HCL INJ/PF 4 MG/2 ML SDV IV ONE ×2 (13:23→17:26)
[2020-01-06] MEDS ORDERED: NORMAL SALINE 1000 ML 1,000 ML IV ONE (13:23)
[2020-01-06 15:32] LABS: ALBUMIN 3.6 g/dL (3.5-5.0); ALKALINE PHOSPHATASE 66 U/L (38-126); ANION GAP 8 (5-19); ASPARTATE AMINO TRANSFERASE 15 U/L (14-36); BILIRUBIN,DIRECT 0.2 mg/dL (0.0-0.4); BILIRUBIN,TOTAL 0.4 mg/dL (0.2-1.3); BLOOD UREA NITROGEN 5 mg/dL (7-20); CALCIUM 9.4 mg/dL (8.4-10.2); CARBON DIOXIDE 26 mmol/L (22-30); CHLORIDE 105 mmol/L (98-107); GLUCOSE 91 mg/dL (75-110); TOTAL PROTEIN 6.2 g/dL (6.3-8.2)
[2020-01-06] MEDS ORDERED: PROMETHAZINE HCL INJ 25 MG/1 ML VIAL IV ONE ×2 (15:53→20:36)
[2020-01-06] MEDS ORDERED: MORPHINE SULFATE 10 MG/ML INJ IV ONE ×2 (15:53→20:37)
[2020-01-06 15:58] LABS: ABSOLUTE BASOPHILS # (AUTO) 0.1 10^3/uL (0.0-0.2); ABSOLUTE EOSINOPHILS # (AUTO) 0.2 10^3/uL (0.0-0.6); ABSOLUTE MONOCYTES (AUTO) 0.6 10^3/uL (0.1-1.4); ABSOLUTE NEUT (AUTO) 4.7 10^3/uL (1.7-8.2); BASOPHILS % (AUTO) 0.9 % (0-2); HEMATOCRIT 30.7 % (36.0-47.0); HEMOGLOBIN 10.2 g/dL (12.0-15.5); LYMPHOCYTES % (AUTO) 15.2 % (13-45); MEAN CORPUSCULAR HGB CONC 33.3 g/dL (32.0-36.0); MEAN CORPUSCULAR VOLUME 84 fl (80-97); MONOCYTES % (AUTO) 8.5 % (3-13); PLATELET COUNT 255 10^3/uL (150-450); RED BLOOD COUNT 3.65 10^6/uL (3.72-5.28); RED CELL DISTRIBUTION WIDTH 16.7 % (11.5-14.0); SEGMENTED NEUTROPHILS % (AUTO) 72.4 % (42-78); TOTAL CELLS COUNTED % (AUTO) 100 %; WHITE BLOOD COUNT 6.5 10^3/uL (4.0-10.5)
[2020-01-06] MEDS ORDERED: LOPERAMIDE HCL 2 MG CAPSULE PO ONE (16:57)
[2020-01-06] MEDS ORDERED: HYDROMORPHONE HCL INJ/PF 2 MG/ML AMPULE IV ONE (17:20)
--- NOTE | 2020-01-06 17:56 | ER Document Report ---
ED GI/ - General Chief Complaint: Abdominal Pain Stated Complaint: NAUSEA/VOMITING/BLOODY DIARRHEA Notes: Patient is a 19-year-old female who presents emergency department with a chief complaint of abdominal pain. Patient states that her pain is in her left mid upper abdomen. Patient states that she has been having diarrhea for the past few days. Patient has history of C. difficile in the past and states that this feels very similar to her having C. difficile. She states that she feels nauseous and has been vomiting sometimes. Patient reports hematemesis. Patient has history of a GI bleed in the past. She is currently on omeprazole. TRAVEL OUTSIDE OF THE [place] IN LAST 30 DAYS: No - Related Data Allergies/Adverse Reactions: gabapentin Allergy (Verified 01/06/20 12:26) metoclopramide HCl [From Reglan] Allergy (Verified 01/06/20 12:26) NSAIDS (Non-Steroidal Anti-Inflamma Allergy (Verified 01/06/20 12:26) pregabalin [From Lyrica] Allergy (Verified 01/06/20 12:26) prochlorperazine [From Compazine] Allergy (Verified 01/06/20 12:26) Home Medications: omeprazole. cymbalta. hydrocodone Past Medical History - General Information source: Patient - Social History Smoking Status: Current Every Day Smoker Chew tobacco use (# tins/day): No Frequency of alcohol use: None Drug Abuse: None Family History: CAD, Reviewed & Not Pertinent Renal/ Medical History: Reports: Hx Kidney Stones, Hx Ovarian Cysts GI Medical History: Reports: Hx Gastroesophageal Reflux Disease, Hx Ulcer Past Surgical History: Reports: Hx Appendectomy, Hx Cholecystectomy, Hx Hysterectomy - Partial, Hx Orthopedic Surgery - Right hip surgery for calcified labrum - Immunizations Hx Diphtheria, Pertussis, Tetanus Vaccination: Yes Review of Systems - Review of Systems Notes: REVIEW OF SYSTEMS: CONSTITUTIONAL : Denies recent illness. Denies recent unintentional weight loss. Denies fever, chills, or sweats. EENT: Denies eye, ear, throat, or mouth pain, discharge, or symptoms. Denies nasal or sinus congestion. CARDIOVASCULAR: Denies chest pain. RESPIRATORY: Denies shortness of breath, cough, congestion, difficulty breathing, or wheezing. GASTROINTESTINAL: Denies nausea, vomiting, and diarrhea. Denies abdominal pain. Denies constipation. GENITOURINARY: See HPI. MUSCULOSKELETAL: Denies neck and back pain. Denies joint pain or swelling. SKIN: Denies rash, itchiness, or lesions HEMATOLOGIC : Denies easy bruising or bleeding. LYMPHATIC: Denies swollen, painful, enlarged glands. NEUROLOGICAL: Denies no numbness or tingling denies weakness. Denies headache. Denies altered mental status. Denies alteration in speech. PSYCHIATRIC: Denies stress, anxiety, alteration in sleep patterns, or depression. All other systems reviewed and negative. Physical Exam - Vital signs Vitals: Temp Pulse Resp BP Pulse Ox 98.5 F 93 16 107/90 H 100 01/06/20 12:00 01/06/20 12:00 01/06/20 12:00 01/06/20 12:00 01/06/20 12:00 - Notes Notes: PHYSICAL EXAMINATION: GENERAL: Appears well, healthy, well-nourished, no acute distress. HEAD: Normocephalic, atraumatic. EYES: PERRL, conjunctiva normal, all extraocular movements intact, sclera n onicteric ENT: Moist mucous membranes. NECK: Supple, no noticeable swelling, redness, rash. Normal range of motion. LUNGS: Equal breath sounds bilaterally and clear to auscultation. No wheezes rales or rhonchi. CARDIOVASCULAR: S1-S2, regular rate, regular rhythm. Radial pulses 2+, normal. ABDOMEN: Normoactive bowel sounds. Soft, tender left upper abdomen, no guarding, no rebound tenderness, and no masses palpated. EXTREMITIES: Normal strength and range of motion, no pitting or edema. No cyanosis. NEUROLOGICAL: Moves all extremities upon command. Strength 5/5 in all extremities. PSYCH: Normal mood, normal affect. SKIN: Warm, dry. No rash, lesions, ulcerations noted. Normal skin turgor. Course - Re-evaluation Re-evalutation: 01/06/20 17:57 Yes hematology shows a hemoglobin of 10.2, which is her normal hemoglobin as per a month ago. Chemistries are unremarkable. Patient has not yet provided urine. 01/06/20 19:39 I spoke with the patient in regards to her CT of her abdomen pelvis, which did not show anything. Patient states that she is still vomiting blood. She showed me her blood. I advised that she get admitted. She states that she wants to follow-up on an outpatient basis. I informed her that she would be leaving AGAINST MEDICAL ADVICE. 01/06/20 20:11 Patient walked to the bathroom and when she got back, she informed the nursing staff that she did not want to leave anymore. Will call Dr. Prieto, suspect patient does have a GI bleed. 01/06/20 20:[address] Prieto in regards to this patient. He would like more information about the patient. 01/06/20 20:28 I spoke with Giselle, from the transfer center at [facility], where she had her endoscopy for 12/11. There was no ulcer noted, but she was started on PPI's. 01/06/20 20:[address] Prieto. He recommends starting patient on PPIs and admitting to medical service. Informed him that I ordered Protonix prior to calling. 01/06/20 20:[address] Olea, the hospitalist. Patient will be admitted to the medical floor. - Vital Signs Vital signs: Temp Pulse Resp BP Pulse Ox 98.6 F 74 16 131/87 H 100 01/06/20 20:06 01/06/20 20:06 01/06/20 20:06 01/06/20 20:06 01/06/20 20:06 - Laboratory Result Diagrams: 01/06/20 15:45 01/06/20 14:50 Laboratory results interpreted by me: 01/06/20 01/06/20 14:50 15:45 RBC 3.65 L Hgb 10.2 L Hct 30.7 L RDW 16.7 H BUN 5 L Creatinine 0.50 L Total Protein 6.2 L Discharge - Discharge Clinical Impression: Diarrhea Qualifiers: Diarrhea type: unspecified type Qualified Code(s): R19.7 - Diarrhea, unspecified Nausea and vomiting Qualifiers: Vomiting type: unspecified Vomiting Intractability: unspecified Qualified Code(s): R11.2 - Nausea with vomiting, unspecified Abdominal pain Qualifiers: Abdominal location: unspecified location Qualified Code(s): R10.9 - Unspecified abdominal pain Condition: Stable Disposition: ADMITTED INPATIENT Admitting Provider: Emmie (Hospitalist) Unit Admitted: Medical Floor Prescriptions: Dicyclomine HCl [Bentyl 20 mg Tablet] 20 mg PO QID PRN #40 tablet PRN Reason:
--- NOTE | 2020-01-06 18:08 | RADIOLOGY REPORT (SQ) ---
EXAM DESCRIPTION: CT ABD/PELVIS WITH IV ONLY IMAGES COMPLETED DATE/TIME: 01/06/2020 5:49 pm REASON FOR STUDY: Left abd pain COMPARISON: 12/09/2019 TECHNIQUE: CT scan of the abdomen and pelvis performed using helical scanning technique with dynamic intravenous contrast injection. No oral contrast. Images reviewed with lung, soft tissue, and bone windows. Reconstructed coronal and sagittal MPR images reviewed. Delayed images for evaluation of the urinary system also acquired. All images stored on PACS. All CT scanners at this facility use dose modulation, iterative reconstruction, and/or weight based d osing when appropriate to reduce radiation dose to as low as reasonably achievable (ALARA). [facility]: Dose Right [facility]: CareDose [facility]: Dose Right [facility]: Teradose 4D [facility]: Giga[employer]ryte CONTRAST TYPE AND DOSE: contrast/concentration: Isovue 350.00 mmol/ml; Total Contrast Delivered: 90. 0 ml; Total Saline Delivered: 70.0 ml RENAL FUNCTION: BUN 5 creatinine 0.5 RADIATION DOSE: CT Rad equipment meets quality standard of care and radiation dose reduction techniq ues were employed. CTDIvol: 5.7 - 7.6 mGy. DLP: 713 mGy-cm.. LIMITATIONS: None. FINDINGS: LOWER CHEST: No significant findings. No nodules or infiltrates. LIVER: Normal size. No masses. No dilated ducts. SPLEEN: Normal size. No focal lesions. PANCREAS: No masses. No significant calcifications. No adjacent inflammation or peripancreatic fluid collections. Pancreatic duct not dilated. GALLBLADDER: Surgically absent. ADRENAL GLANDS: No significant masses or asymmetry. RIGHT KIDNEY AND URETER: No solid masses. No significant calcifications. No hydronephrosis or hyd roureter. LEFT KIDNEY AND URETER: No solid masses. No significant calcifications. No hydronephrosis or hydr oureter. AORTA AND VESSELS: No aneurysm. No dissection. Renal arteries, SMA, celiac without stenosis. RETROPERITONEUM: No retroperitoneal adenopathy, hemorrhage or masses. BOWEL AND PERITONEAL CAVITY: No masses or inflammatory changes. No free fluid or peritoneal masses. APPENDIX: Not identified. PELVIS: No mass. No free fluid. Normal bladder. ABDOMINAL WALL: No masses. No hernias. BONES: No significant or acute findings. OTHER: No other significant finding. IMPRESSION: NO SIGNIFICANT OR ACUTE FINDING IN THE ABDOMEN OR PELVIS ON CT SCAN WITH IV CONTRAST. TECHNICAL DOCUMENTATION: JOB ID: [id number] Quality ID # [id number]: Final reports with documentation of one or more dose reduction techniques (e.g., Au tomated exposure control, adjustment of the mA and/or kV according to patient size, use of iterative reconstruction technique) 2010 [employer]- All Rights Reserved Reading location - IP/workstation name: [email or web address]
[2020-01-06] MEDS ORDERED: PANTOPRAZOLE SODIUM 40 MG VIAL IV ONE (20:12)
[2020-01-06] MEDS ORDERED: MAG HYDROX/AL HYDROX/SIMETH SUSP 30 ML UDCUP PO PRN (21:46)
[2020-01-06] MEDS ORDERED: LEVALBUTEROL HCL NEB 0.63 MG/3 ML AMPUL NEB PRN (21:46)
[2020-01-06] MEDS ORDERED: GUAIFENESIN SYRP 200 MG/10 ML UDC PO PRN (21:55)
[2020-01-06] MEDS ORDERED: ACETAMINOPHEN 650 MG SUPP.RECT PR PRN (21:55)
[2020-01-06] MEDS ORDERED: NICOTINE 21 MG/24 HR PATCH.TD24 TD PRN (21:55)
[2020-01-06] MEDS ORDERED: MORPHINE SULFATE 10 MG/ML INJ IV PRN ×4 (21:55→22:37)
[2020-01-06] MEDS ORDERED: LORAZEPAM INJ 2 MG/1 ML VIAL IV PRN (21:55)
[2020-01-06 22:07] LABS: C DIFFICILE GDH NEGATIVE (NEGATIVE)
[2020-01-06 23:13] LABS: INTERNATIONAL RATION (INR) 0.98; PROTHROMBIN TIME 13.2 SEC (11.4-15.4)
[2020-01-06] MEDS: PROMETHAZINE HCL INJ 25 MG/1 ML VIAL IV PRN (23:43)
[2020-01-06] MEDS: PANTOPRAZOLE SODIUM 40 MG VIAL IV SCH (23:44)
[2020-01-06] MEDS: DEXTROSE 5%-LACTATED RINGERS 1,000 ML IV PRN (23:57)
[2020-01-07] MEDS ORDERED: HYDROMORPHONE HCL INJ/PF 2 MG/ML AMPULE IV PRN ×4 (00:38→00:45)
--- NOTE | 2020-01-07 00:38 | PDOC H&P ---
History of Present Illness Admission Date/PCP: 01/06/20 21:18 [facility] Patient complains of: Abdominal pain History of Present Illness: AJ JENSEN is a 39 year old female who presented the emergency room with a 3-day history of abdominal pain. She admits constant moderately severe colicky epigastric and left upper quadrant pain progressively worsening over the last 3 days. Her abdominal pain has been accompanied by constant nausea with episodic vomiting and has been associated with episodic diarrhea. She additionally reports 2 episodes of hematemesis with vomiting today resulting in her emergency room visit. She denies other associated or accompanying signs and symptoms. She admits a prior similar episode following a recent hip surgery at [facility]. She has not identified any aggravating or ameliorating factors for her abdominal pain. In the emergency room she was found to have a hemoglobin unchanged from her baseline, but did have grossly bloody emesis x2 in the emergency room and was subsequently admitted to the hospital for further evaluation and treatment. Past Medical History Cardiac Medical History: Denies: Atrial Fibrillation, Coronary Artery Disease, DVT, Hyperlipidema, Hypertension, Pulmonary Embolism Pulmonary Medical History: Denies: Asthma, Chronic Obstructive Pulmonary Disease (COPD) EENT Medical History: Denies: Cataracts, Ears - Hearing aids Neurological Medical History: Denies: Hemorrhagic CVA, Ischemic CVA, Seizures Endocrine Medical History: Denies: Diabetes Mellitus Type 1, Diabetes Mellitus Type 2, Hyperthyroidism, Obesity Renal/ Medical History: Reports: Nephrolithiasis, Other - Ovarian cysts Denies: Chronic Kidney Disease Malignancy Medical History: Reports: None GI Medical History: Reports: Gastroesophageal Reflux Disease, Peptic Ulcer Disease, Other - Postoperative gastrointestinal bleeding, colitis Denies: Cirrhosis, Crohn's Disease, Hepatitis, Ulcerative Colitis Musculoskeltal Medical History: Reports: Arthritis Denies: Fibromyalgia, Gout Skin Medical History: Denies: Eczema, Psoriasis Psychiatric Medical History: Reports: Tobacco Dependency Denies: Alcohol Dependency, Substance Abuse Traumatic Medical History: Reports: None Hematology: Reports: Anemia Denies: Bleeding Tendencies Infectious Medical History: Reports: Clostridium Difficile Past Surgical History Past Surgical History: Reports: Appendectomy, Cholecystectomy, Hysterectomy, Orthopedic Surgery - Right hip surgery for calcified labrum Social History Information Source: Patient Lives with: Alone Smoking Status: Current Every Day Smoker Electronic Cigarette use?: No Frequency of Alcohol Use: Occasional Hx Recreational Drug Use: No Drugs: None Hx Prescription Drug Abuse: No - Advance Directive Resuscitation Status: Full Code Surrogate healthcare decision maker:: Glo Barker Family History Family History: CAD, DM. denies: CVA, Hypertension, Malignancy Parental Family History Reviewed: Yes Children Family History Reviewed: No Sibling(s) Family History Reviewed.: Yes Medication/Allergy Home Medications: Cephalexin Monohydrate [Keflex 500 mg Capsule] 500 mg PO BID #20 capsule 02/02/15 Hydrocodone/Acetaminophen [[place] 7.5-325 Tablet] 1 each PO Q6HP PRN #20 tablet 02/02/15 Ondansetron [Zofran Odt] 8 mg PO Q8HP PRN #10 tab.rapdis 02/02/15 Hydrocodone/Acetaminophen [[place] 5-325 mg Tablet] 1 tab PO Q6H PRN #10 tablet 02/13/15 Methocarbamol [Robaxin 500 mg Tablet] 500 mg PO TID #14 tablet 02/13/15 Ondansetron [Zofran Odt 4 mg Tablet] 1 - 2 tab PO Q4H PRN #15 tab.rapdis 11/20/19 Tamsulosin HCl [Flomax] 0.4 mg PO DAILY #7 cap.er.24h 11/20/19 Dicyclomine HCl [Bentyl 20 mg Tablet] 20 mg PO QID PRN #40 tablet 01/06/20 Allergies/Adverse Reactions: gabapentin Allergy (Verified 01/06/20 12:26) metoclopramide HCl [From Reglan] Allergy (Verified 01/06/20 12:26) NSAIDS (Non-Steroidal Anti-Inflamma Allergy (Verified 01/06/20 12:26) pregabalin [From Lyrica] Allergy (Verified 01/06/20 12:26) prochlorperazine [From Compazine] Allergy (Verified 01/06/20 12:26) Review of Systems Constitutional: ABSENT: chills, fever(s) Eyes: ABSENT: visual disturbances, other - Eye pain Ears: ABSENT: hearing changes, other - Ear pain Nose, Mouth, and Throat: ABSENT: headache(s), sore throat Cardiovascular: ABSENT: chest pain, palpitations Respiratory: ABSENT: cough, dyspnea Gastrointestinal: PRESENT: as per HPI, abdominal pain, diarrhea, hematemesis, nausea, vomiting. ABSENT: constipation, hematochezia, melena Genitourinary: ABSENT: dysuria, hematuria Musculoskeletal: ABSENT: back pain, joint swelling, muscle weakness Integumentary: ABSENT: pruritus, rash Neurological: ABSENT: confusion, convulsions, focal weakness, memory loss, syncope Psychiatric: ABSENT: anxiety, depression Endocrine: ABSENT: cold intolerance, heat intolerance Hematologic/Lymphatic: ABSENT: easy bleeding, easy bruising Allergic/Immunologic: ABSENT: seasonal rhinorrhea Physical Exam Vital Signs: Temp Pulse Resp BP Pulse Ox 98.6 F 74 16 131/87 H 100 01/06/20 20:06 01/06/20 20:06 01/06/20 20:06 01/06/20 20:06 01/06/20 20:06 Intake & Output 01/04/20 01/05/20 01/06/20 23:59 23:59 23:59 Intake Total 1000 Balance 1000 Weight 79.379 kg General appearance: PRESENT: no acute distress, cooperative Head exam: PRESENT: atraumatic, normocephalic Eye exam: PRESENT: conjunctiva pink. ABSENT: conjunctival injection, scleral icterus Ear exam: PRESENT: normal external ear exam. ABSENT: bleeding, drainage Mouth exam: PRESENT: dry mucosa, neck supple Neck exam: ABSENT: thyromegaly, tracheal deviation Respiratory exam: PRESENT: clear to auscultation theo, symmetrical, unlabored Cardiovascular exam: PRESENT: RRR. ABSENT: clicks, gallop, rubs Pulses: PRESENT: normal radial pulses, normal dorsalis pedis pul Vascular exam: PRESENT: normal capillary refill. ABSENT: pallor GI/Abdominal exam: PRESENT: normal bowel sounds, soft, tenderness - Moderate epigastric and left subcostal tenderness to palpation Rectal exam: PRESENT: deferred Extremities exam: ABSENT: joint swelling, pedal edema Musculoskeletal exam: ABSENT: deformity, dislocation Neurological exam: PRESENT: alert, oriented to person, oriented to place, oriented to time, oriented to situation, CN II-XII grossly intact. ABSENT: motor sensory deficit Psychiatric exam: PRESENT: appropriate affect, normal mood Skin exam: PRESENT: dry, intact, warm. ABSENT: jaundice, rash, urticaria Results Laboratory Results: 01/06/20 15:45 01/06/20 14:50 01/06/20 01/06/20 01/06/20 14:50 14:50 15:45 WBC Cancelled 6.5 RBC Cancelled 3.65 L Hgb Cancelled 10.2 L Hct Cancelled 30.7 L MCV Cancelled 84 MCH Cancelled 28.0 MCHC Cancelled 33.3 RDW Cancelled 16.7 H Plt Count Cancelled 255 Seg Neutrophils % Cancelled 72.4 Sodium 139.0 Potassium 4.0 Chloride 105 Carbon Dioxide 26 Anion Gap 8 BUN 5 L Creatinine 0.50 L Est GFR ( Amer) > 60 Glucose 91 Calcium 9.4 Total Bilirubin 0.4 AST 15 Alkaline Phosphatase 66 Total Protein 6.2 L Albumin 3.6 Stool for White Cells 01/06/20 16:02 WBC RBC Hgb Hct MCV MCH MCHC RDW Plt Count Seg Neutrophils % Sodium Potassium Chloride Carbon Dioxide Anion Gap BUN Creatinine Est GFR ( Amer) Glucose Calcium Total Bilirubin AST Alkaline Phosphatase Total Protein Albumin Stool for White Cells NO WBCs SEEN Impressions: Abdomen/Pelvis CT 01/06/20 15:59 IMPRESSION: NO SIGNIFICANT OR ACUTE FINDING IN THE ABDOMEN OR PELVIS ON CT SCAN WITH IV CONTRAST. Assessment and Plan - Diagnosis (1) Abdominal pain Qualifiers: Abdominal location: epigastric Qualified Code(s): R10.13 - Epigastric pain Is this a current diagnosis for this admission?: Yes (2) Hematemesis Qualifiers: Nausea presence: with nausea Qualified Code(s): K92.0 - Hematemesis Is this a current diagnosis for this admission?: Yes (3) Nausea and vomiting Qualifiers: Vomiting type: unspecified Vomiting Intractability: non-intractable Qualified Code(s): R11.2 - Nausea with vomiting, unspecified Is this a current diagnosis for this admission?: Yes (4) Diarrhea Qualifiers: Diarrhea type: unspecified type Qualified Code(s): R19.7 - Diarrhea, unspecified Is this a current diagnosis for this admission?: Yes (5) Tobacco use disorder, continuous Is this a current diagnosis for this admission?: Yes - Plan Summary Summary: Patient will be admitted to the medical floor where she will receive routine supportive and symptomatic cares. She will be treated with IV fluids utilizing D5 LR at 167 mL/h initially. She will receive Protonix 40 mg IV every 12 hours. She will be blood typed and antibody screened for possible transfusion. She will receive morphine sulfate 2 to 4 mg IV every 2 hours as needed for pain. She will receive Ativan 1 mg IV every 4 hours as needed for anxiety or restlessness. The case was discussed at length with Dr. Sam Prieto who did not feel that a formal surgical consultation was required, but thanked me for making him aware of the patient's status and assured me of the availability of the surgical service at any time should the patient's status worsen and surgical intervention be required. Serial CBCs will be obtained. Additional laboratory and/or radiographic evaluations will be obtained as needed. Patient will initially be placed on a clear liquid diet as tolerated. Stool for C. difficile testing is pending at this time having been obtained in the emergency room. - Time Time Spent with patient: 15-24 minutes Smoking Cessation Education: 3 to 10 minutes Medications reviewed and adjusted accordingly: Yes Anticipated Discharge Disposition: Home, Self Care Anticipated Discharge Timeframe: within 72 hours - Inpatient Certification Based on my medical assessment, after consideration of the patient's comorbidities, presenting symptoms, or acuity I expect that the services needed warrant INPATIENT care.: Yes I certify that my determination is in accordance with my understanding of Medicare's requirements for reasonable and necessary INPATIENT services [42 CFR 412.3e].: Yes Medical Necessity: Need Close Monitoring Due to Risk of Patient Decompensation, Need For IV Fluids, Need for Pain Control, Risk of Complication if Not Cared For in Hospital
[2020-01-07] MEDS: HYDROMORPHONE HCL INJ/PF 2 MG/ML AMPULE IV PRN ×2 (02:24→05:18)
[2020-01-07] MEDS: PROMETHAZINE HCL INJ 25 MG/1 ML VIAL IV PRN (05:18)
[2020-01-07] MEDS: DEXTROSE 5%-LACTATED RINGERS 1,000 ML IV PRN ×2 (05:19→13:48)
[2020-01-07 06:37] LABS: HEMATOCRIT 28.4 % (36.0-47.0); HEMOGLOBIN 9.4 g/dL (12.0-15.5); MEAN CORPUSCULAR HEMOGLOBIN 27.7 pg (27.0-33.4); MEAN CORPUSCULAR HGB CONC 33.1 g/dL (32.0-36.0); MEAN CORPUSCULAR VOLUME 84 fl (80-97); PLATELET COUNT 243 10^3/uL (150-450); RED BLOOD COUNT 3.39 10^6/uL (3.72-5.28); RED CELL DISTRIBUTION WIDTH 16.7 % (11.5-14.0); WHITE BLOOD COUNT 4.1 10^3/uL (4.0-10.5)
[2020-01-07 06:44] LABS: BLOOD UREA NITROGEN 2 mg/dL (7-20); CALCIUM 8.7 mg/dL (8.4-10.2); GLUCOSE 98 mg/dL (75-110); POTASSIUM 3.5 mmol/L (3.6-5.0)
[2020-01-07 06:49] LABS: CARBON DIOXIDE 28 mmol/L (22-30); CHLORIDE 104 mmol/L (98-107)
[2020-01-07 06:56] LABS: ANION GAP 4 (5-19)
[2020-01-07] MEDS ORDERED: PROMETHAZINE HCL INJ 25 MG/1 ML VIAL IV PRN (08:16)
[2020-01-07] MEDS ORDERED: MAG HYDROX/AL HYDROX/SIMETH SUSP 30 ML UDCUP PO PRN (08:18)
[2020-01-07] MEDS: PANTOPRAZOLE SODIUM 40 MG VIAL IV SCH (09:09)
[2020-01-07] MEDS ORDERED: HYDROCODONE/ACETAMINOPHEN 5-325 MG TABLET PO PRN (10:03)
[2020-01-07] MEDS ORDERED: DICYCLOMINE HCL 10 MG CAPSULE PO PRN (10:03)
[2020-01-07] MEDS: SUCRALFATE 1 GM TABLET PO SCH ×2 (10:26→16:19)
[2020-01-07 15:56] VITALS: BP 131/73
[2020-01-07 17:57] LABS: HEMATOCRIT 29.8 % (36.0-47.0); HEMOGLOBIN 10.3 g/dL (12.0-15.5); MEAN CORPUSCULAR HEMOGLOBIN 28.6 pg (27.0-33.4); MEAN CORPUSCULAR HGB CONC 34.6 g/dL (32.0-36.0); MEAN CORPUSCULAR VOLUME 83 fl (80-97); PLATELET COUNT 276 10^3/uL (150-450); RED BLOOD COUNT 3.59 10^6/uL (3.72-5.28); RED CELL DISTRIBUTION WIDTH 16.6 % (11.5-14.0); WHITE BLOOD COUNT 4.6 10^3/uL (4.0-10.5)
--- NOTE | 2020-01-07 18:22 | Left Against Medical Advice ---
Against Medical Advice Admission Date/Time: 01/06/20 21:18 Primary Care Provider: Date of Patient Emigration: 01/07/20 - Diagnosis: (1) Abdominal pain Is this a current diagnosis for this admission?: Yes (2) Diarrhea Is this a current diagnosis for this admission?: Yes (3) Hematemesis Is this a current diagnosis for this admission?: Yes (4) Nausea and vomiting Is this a current diagnosis for this admission?: Yes (5) Tobacco use disorder, continuous Is this a current diagnosis for this admission?: Yes - Summary: Summary: Please see Admission and Progress Notes as well. AJ JENSEN is a 39 F, who LEFT AGAINST MEDICAL ADVICE. The Patient was admitted on 01/06/20 21:18. She was admitted to the medical floor on continuous cardiac telemetry with report of abdominal pain, hematemesis, and bright red blood per rectum. CT abdomen pelvis was benign. ED provider spoke with the [facility] transfer center and verified today at EGD done at her recent admission was negative for ulcerations; she was discharged at that time with recommendations for PPI therapy. She is placed on a clear liquid diet with antiemetics as needed. Serial hemoglobin proved to be stable at 10.2-> 9.4-> 10.3. Per nursing, the patient had 2-3 episodes of small-volume (approximately 50 to 75 mL's) clear emesis without pernell blood. She has had no bowel movements today. Unfortunately, although stool sample was collected last night for culture and O&P, this was not tested for occult blood. She was placed on IV Protonix twice daily, Carafate AC at bedtime, Maalox as needed, with resumption of her home medications (including Custar and Bentyl). The patient was quite upset that this resulted in discontinuation of her IV sliding scale Dilaudid. We discussed that IV Dilaudid could be considered for breakthrough pain should her home medication regiment not be sufficient. Further offered to increase the availability of her antiemetics. This was not to the patient's satisfaction and she subsequently left AGAINST MEDICAL ADVICE.
== END 2020-01-07 18:05 | disposition left against medical advice (07) | DRG 379 ==
LOC: ER 11:53 → EH 21:18 → 4S 23:20
PROVIDERS: ADMIT Emergency Medicine; ATTEND Registered Nurse
DX: K92.0 Hematemesis (principal); K21.9 Gastro-esophageal reflux disease without esophagitis; M19.90 Unspecified osteoarthritis, unspecified site; F17.200 Nicotine dependence, unspecified, uncomplicated; Z82.49 Family history of ischemic heart disease and other diseases of the circulatory system; Z90.49 Acquired absence of other specified parts of digestive tract; Z83.3 Family history of diabetes mellitus; Z88.6 Allergy status to analgesic agent; Z88.8 Allergy status to other drugs, medicaments and biological substances
CPT/HCPCS: 36415; 74177; 80048; 80053; 83690; 83735; 85025; 85027; 85610; 85730; 86850; 86900; 86901; 87045; 87177; 87205; 87324; 87449; 89055; 96361; 96374; 96375; 96376; 99285; C9113; J1170; J2270; J2405; J2550; J3490; J7030; J7121